=== PATIENT | male | born 1970 | race Hispanic/Latino ===

== ENCOUNTER 2018-05-27 07:54 | Day surgery (SDC) | payer OTHER ==
[2018-05-26 16:02] LABS: BASOPHILS % (AUTO) 0.5 % (0.0-5.0); EOSINOPHILS % (AUTO) 1.2 % (0.0-8.0); HEMATOCRIT 45.4 % (42-54); LYMPHOCYTES % (AUTO) 21.6 % (21.0-51.0); MEAN CORPUSCULAR HEMOGLOBIN 31.6 pg (27.0-33.0); MEAN CORPUSCULAR HGB CONC 35.8 g/dL (32.0-36.0); MEAN CORPUSCULAR VOLUME 88.4 fL (79-99); MONOCYTES % (AUTO) 7.1 % (3.0-13.0); NEUTROPHILS % (AUTO) 69.6 % (40.0-77.0); NUCLEATED RED BLOOD CELLS 0.1 % (0.0-0.19); PLATELET COUNT (AUTO) 263 K/uL (130-400); RED BLOOD CELL COUNT(AUTO) 5.14 MIL/uL (4.50-6.20); RED CELL DISTRIBUTION WIDTH 12.6 % (11.0-15.5); WHITE BLOOD COUNT (AUTO) 9.6 K/uL (4.8-10.8)
[2018-05-26 16:03] VITALS: BP 117/72
[2018-05-26 16:10] LABS: CREATININE 0.9 mg/dL (0.5-1.5); POTASSIUM 3.8 mmol/L (3.5-5.1)
[2018-05-27] VITALS (17 sets, daily range): BP systolic 102–136; BP diastolic 54–74
[~2018-05-27] VITALS: Ht 172.7 cm; Wt 104.3 kg
[~2018-05-27 07:54] MED LIST: CEFAZOLIN 3GM /D5W 100ML 100 ML IV SCH; HYDR-4068 PO; INSLAN SQ; PRAZOSIN PO; SERT100T12 PO; TRAZADONE PO
[2018-05-27] MEDS ORDERED: CEFAZOLIN SODIUM 1 GM VIAL ONE (08:48)
[2018-05-27] MEDS ORDERED: SODIUM CHLORIDE 0.9% 1000ML 1,000 ML IV ONE (08:48)
[2018-05-27] MEDS ORDERED: KETOROLAC TROMETHAMINE 30MG/ML ONE (09:11)
[2018-05-27] MEDS ORDERED: GEMF600T5 PO (09:38)
[2018-05-27] MEDS ORDERED: ATOR-2 PO (09:38)
[2018-05-27] MEDS ORDERED: EPINEPHRINE 1 MG/ML 30ML VIAL IJ ONE (09:56)
[2018-05-27] MEDS ORDERED: MIDAZOLAM HCL 1 MG/ML 2ML VIAL ONE (10:36)
[2018-05-27] MEDS ORDERED: ROCURONIUM 10MG/1ML SYR 10 MG/ML ML ONE ×3 (10:37→13:04)
[2018-05-27] MEDS ORDERED: PROPOFOL 10 MG/ML 20ML VIAL IV ONE ×2 (10:37→14:51)
[2018-05-27] MEDS ORDERED: ONDANSETRON HCL 4 MG/2 ML VIAL ONE (10:37)
[2018-05-27] MEDS ORDERED: FENTANYL CITRATE PF 50 MCG/1 ML 2ML VIAL ONE ×3 (10:39→14:50)
[2018-05-27] MEDS ORDERED: DEXAMETHASONE SOD PHOSPHATE 10MG/ML 1ML VIAL ONE (10:49)
[2018-05-27] MEDS ORDERED: ROPIVACAINE 0.5% 5MG/ML 30ML IJ ONE (10:50)
[2018-05-27] MEDS ORDERED: EPHEDRINE SULFATE 50 MG/ML AMPULE ONE (13:18)
[2018-05-27] MEDS ORDERED: NEOSTIGMINE 5MG/5ML SYR IV ONE (14:40)
[2018-05-27] MEDS ORDERED: GLYCOPYRROLATE 1 MG/5 ML SYRINGE ONE (14:40)
[2018-05-27] MEDS ORDERED: HYDR-4453 PO (15:10)
[2018-05-27] MEDS ORDERED: NAPR-1023 PO (15:10)
[2018-05-27] MEDS ORDERED: CEPH500B PO (15:10)
--- NOTE | 2018-05-27 16:15 | NUR ---
RECEIVE PT RECEIVED FROM PACU VIA STRETCHER AWAKE ALERT ORIENTED X3. PT STABLE. GAUZE/OPSITE DRESSINGS X4 TO LEFT SHOULDER DRY AND INTACT, NO OOZING NO HEMATOMA NOTED, ICE PACK APPLIED TO SITE, PLACED TOWEL IN BETWEEN. LEFT ARM IN SLING, MINIMAL MOVEMENTS TO LEFT FINGERS, CAPILLARY REFILLS BRISK, SENSATION TO TOUCH INTACT. CALL ARCHER WITHIN REACH, WILL CALL TO COME IN TO ROOM. Addendum: 05/27/18 at 1742 by ALLAN TILLEY RN RN ADDENDUM: PT STATES HIS THROAT IS A LITTLE SORE, HARSHNESS NOTED, NO SWELLING NO REDNESS UPON ASSESSMENT. PT DENIES SHORTNESS OF BREATH OR DIFFICULTY BREATHING, LUNG SOUNDS CLEAR BILATERALLY. INSTRUCTED MAY GARGLE WARM SALT WATER AT HOME. VERBALIZED UNDERSTANDING.
--- NOTE | 2018-05-27 17:05 | NUR ---
DISCHARGE PT DISCHARGED VIA WHEELCHAIR WITH . PT STABLE. NO COMPLAINTS MADE. DRESSINGS X4 TO LEFT SHOULDER REMAINS DRY AND INTACT, NO OOZING NOTED. LEFT ARM REMAINS IN ARM SLING, SOME MOVEMENT NOTED TO FINGERS, SKIN SENSATION INTACT. PER PT, HIS THROAT FEELS MUCH BETTER AFTER DRINKING WATER, TOLERATED ORAL FLUIDS WELL. DISCHARGE INSTRUCTIONS GIVEN TO AND PT, BOTH VERBALIZED UNDERSTANDING.
== END 2018-05-27 17:05 | disposition home or self-care (01) ==
LOC: DAH 07:54
PROVIDERS: ATTEND Orthopaedic Surgery
DX: S43.402A Unspecified sprain of left shoulder joint, initial encounter (principal); M75.102 Unspecified rotator cuff tear or rupture of left shoulder, not specified as traumatic; M75.42 Impingement syndrome of left shoulder; Z98.890 Other specified postprocedural states; Z68.34 Body mass index [BMI] 34.0-34.9, adult; E11.9 Type 2 diabetes mellitus without complications; F41.9 Anxiety disorder, unspecified; F32.9 Major depressive disorder, single episode, unspecified; M19.90 Unspecified osteoarthritis, unspecified site; F43.10 Post-traumatic stress disorder, unspecified; Z79.899 Other long term (current) drug therapy; Z83.3 Family history of diabetes mellitus; Z88.8 Allergy status to other drugs, medicaments and biological substances; K21.9 Gastro-esophageal reflux disease without esophagitis
CPT/HCPCS: 29822; 29824; 29826; 29827; 36415; 80048; 82948 ×2; 85025; A4218 ×2; A4565; A4649 ×6; A4930 ×2; A6204; C1713; C1763; G0168; J0171; J0690; J1100; J1885; J2250; J2405; J2704 ×2; J2710; J2795; J3010 ×3; J3490 ×2; J7030 ×2

== ENCOUNTER 2019-01-27 08:28 | Day surgery (SDC) | payer OTHER ==
[2019-01-26 14:50] VITALS: BP 151/77
[2019-01-26 15:43] LABS: POTASSIUM 4.2 mmol/L (3.5-5.1)
[2019-01-26 15:44] LABS: BASOPHILS % (AUTO) 0.4 % (0.0-5.0); EOSINOPHILS % (AUTO) 0.9 % (0.0-8.0); LYMPHOCYTES % (AUTO) 18.3 % (21.0-51.0); MEAN CORPUSCULAR HEMOGLOBIN 31.3 pg (27.0-33.0); MEAN CORPUSCULAR VOLUME 89.3 fL (79-99); MONOCYTES % (AUTO) 6.2 % (3.0-13.0); NEUTROPHILS % (AUTO) 74.2 % (40.0-77.0); PLATELET COUNT (AUTO) 235 K/uL (130-400); RED BLOOD CELL COUNT(AUTO) 5.16 MIL/uL (4.50-6.20); RED CELL DISTRIBUTION WIDTH 12.5 % (11.0-15.5); WHITE BLOOD COUNT (AUTO) 9.4 K/uL (4.8-10.8)
--- NOTE | 2019-01-26 18:55 | NUR ---
PER DR. TAYLOR NO NEW ORDERS FOR ABNORMAL LABS.
[~2019-01-27] VITALS: Ht 172.7 cm; Wt 104.6 kg
[2019-01-27] VITALS (15 sets, daily range): BP systolic 113–136; BP diastolic 70–82
[~2019-01-27 08:28] MED LIST changes: +ALBUTEROL IH; +ATOR-2 PO; +GEMF600T5 PO; -HYDR-4068 PO; +HYDR-4453 PO; +SPIRIVA IH
[2019-01-27] MEDS ORDERED: CEFAZOLIN SODIUM 1 GM VIAL ONE (09:30)
[2019-01-27] MEDS ORDERED: SODIUM CHLORIDE 0.9% 1000ML 1,000 ML IV ONE (09:30)
[2019-01-27] MEDS ORDERED: EPINEPHRINE 1 MG/ML 30ML VIAL IJ ONE (10:16)
[2019-01-27] MEDS ORDERED: LIDOCAINE PF 2% 5ML ABBOJECT ONE (10:18)
[2019-01-27] MEDS ORDERED: PROPOFOL 10 MG/ML 20ML VIAL IV ONE (10:18)
[2019-01-27] MEDS ORDERED: MIDAZOLAM HCL 1 MG/ML 2ML VIAL ONE (10:18)
[2019-01-27] MEDS ORDERED: FENTANYL CITRATE PF 50 MCG/1 ML 2ML VIAL ONE ×2 (10:19→12:49)
[2019-01-27] MEDS ORDERED: ROCURONIUM 10MG/1ML SYR 10 MG/ML ML ONE ×2 (10:22→11:06)
[2019-01-27] MEDS ORDERED: KETAMINE 50MG/ML SYRINGE 50 MG/ML DISP.SYRIN IV ONE (10:27)
[2019-01-27] MEDS ORDERED: ROPIVACAINE 0.5% 5MG/ML 30ML IJ ONE (10:27)
[2019-01-27] MEDS ORDERED: DEXAMETHASONE SOD PHOSPHATE 10MG/ML 1ML VIAL ONE (10:40)
[2019-01-27] MEDS ORDERED: PHENYLEPHRINE HCL 10 MG/ML 1ML VIAL IV ONE (11:26)
[2019-01-27] MEDS ORDERED: EPHEDRINE SULFATE 50 MG/ML AMPULE ONE (11:33)
[2019-01-27] MEDS ORDERED: GLYCOPYRROLATE 1 MG/5 ML SYRINGE ONE (12:54)
[2019-01-27] MEDS ORDERED: NEOSTIGMINE 5MG/5ML SYR IV ONE (12:55)
[2019-01-27] MEDS ORDERED: CEPH500B PO (13:30)
[2019-01-27] MEDS ORDERED: NAPR-1023 PO (13:30)
[2019-01-27] MEDS ORDERED: HYDR-4453 PO (13:30)
--- NOTE | 2019-01-27 14:50 | NUR ---
PT LEFT VIA WHEELCHAIR PVT CAR. RX SCRIPTS GIVEN TO ALONG WITH D/C INSTRUCTIONS. DRESSING DRY AND INTACT NO COMPLICATIONS UPON D/C.
== END 2019-01-27 14:50 | disposition home or self-care (01) ==
LOC: DAH 08:28
PROVIDERS: ATTEND Orthopaedic Surgery
DX: S43.432S Superior glenoid labrum lesion of left shoulder, sequela (principal); M75.112 Incomplete rotator cuff tear or rupture of left shoulder, not specified as traumatic; G89.29 Other chronic pain; J44.9 Chronic obstructive pulmonary disease, unspecified; F17.200 Nicotine dependence, unspecified, uncomplicated; F43.10 Post-traumatic stress disorder, unspecified; F41.9 Anxiety disorder, unspecified; E11.9 Type 2 diabetes mellitus without complications; F32.9 Major depressive disorder, single episode, unspecified; M19.90 Unspecified osteoarthritis, unspecified site; Z98.890 Other specified postprocedural states; Z96.641 Presence of right artificial hip joint; Z79.899 Other long term (current) drug therapy; X58.XXXS Exposure to other specified factors, sequela
CPT/HCPCS: 29806; 29822; 36415; 64415; 76942; 80048; 82948 ×2; 85025; A4215; A4221; A4222; A4223; A4565; A4600; A4649 ×5; A4663; A4930; A5120; A6204; C1713; J0171; J0690; J1100; J2001; J2250; J2370; J2704; J2710; J2795; J3010 ×2; J3490 ×3; J7030 ×2; J7120

== ENCOUNTER → 2022-02-13 | Outpatient (CLI) | payer OTHER ==
[~2022-02-13] MED LIST changes: -CEFAZOLIN 3GM /D5W 100ML 100 ML IV SCH; +CEPH500B PO; -GEMF600T5 PO; +GEMF600T89 PO; +NAPR-1023 PO; +SERT-440 PO; -SERT100T12 PO
[2022-02-13 11:36] LABS: BASOPHILS % (AUTO) 0.5 % (0.0-5.0); EOSINOPHILS % (AUTO) 2.3 % (0.0-8.0); HEMATOCRIT 46.6 % (42-54); LYMPHOCYTES % (AUTO) 16.2 % (21.0-51.0); MEAN CORPUSCULAR HEMOGLOBIN 30.9 pg (27.0-33.0); MEAN CORPUSCULAR HGB CONC 35.8 g/dL (32.0-36.0); MEAN CORPUSCULAR VOLUME 86.1 fL (79-99); NEUTROPHILS % (AUTO) 73.8 % (40.0-77.0); PLATELET COUNT (AUTO) 231 K/uL (130-400); RED BLOOD CELL COUNT(AUTO) 5.41 MIL/uL (4.50-6.20); RED CELL DISTRIBUTION WIDTH 12.9 % (11.0-15.5); WHITE BLOOD COUNT (AUTO) 8.4 K/uL (4.8-10.8)
[2022-02-13 11:41] LABS: ALBUMIN 4.2 g/dL (3.5-5.0); CARBON DIOXIDE 31 mmol/L (21-32); CHLORIDE 101 mmol/L (101-111); CREATININE 0.8 mg/dL (0.5-1.5); GLOMERULAR FILTR. RATE CALC 109 mL/min (>60); GLUCOSE,RANDOM 200 mg/dL (70-105); POTASSIUM 3.5 mmol/L (3.5-5.1); SODIUM SERUM 142 mmol/L (136-145); UREA NITROGEN, BLOOD 10 mg/dL (7-18)
[2022-02-13 11:42] LABS: CRP QUANTITATIVE < 2.00 mg/L (0.00-9.0)
[2022-02-13 11:44] LABS: HEMOGLOBIN A1C 8.8 % (4.0-6.0)
[2022-02-13 12:13] LABS: INR 0.93 (0.85-1.15); PROTHROMBIN TIME 10.2 SEC (9.6-11.6)
[2022-02-13 12:14] LABS: PARTIAL THROMBOPLASTIN TIME 27.2 SEC (26.3-35.5)
== END | disposition home or self-care (01) ==
LOC: DAH 10:00 → EDSTATUS 02-16 14:00
PROVIDERS: ATTEND Student in an Organized Health Care Education/Training Program
DX: M75.111 Incomplete rotator cuff tear or rupture of right shoulder, not specified as traumatic (principal); Z20.822 Contact with and (suspected) exposure to COVID-19; M75.41 Impingement syndrome of right shoulder; Z79.01 Long term (current) use of anticoagulants; Z79.899 Other long term (current) drug therapy; Z53.8 Procedure and treatment not carried out for other reasons
CPT/HCPCS: 36415; 80048; 82040; 83036; 84134; 85025; 85610; 85730; 86140; 87426